=== PATIENT | female | born 1970 | race Caucasian/White ===

== ENCOUNTER 2018-01-30 14:02 | Outpatient (CLI) | payer BC | END 2018-01-30 14:03 | disposition home or self-care (01) | LOC: BICMAMMO 14:02 | PROVIDERS: ATTEND Obstetrics & Gynecology | DX: Z12.31 Encounter for screening mammogram for malignant neoplasm of breast (principal) | CPT/HCPCS: 77063; 77067 ==

== ENCOUNTER 2019-02-03 13:46 | Outpatient (CLI) | payer BC ==
--- NOTE | 2019-02-03 14:43 | MMO ---
Bilateral MAMMO Bilat Screen [facility]. CLINICAL HISTORY: Patient is 48 years old and is seen for screening. The patient has no family history of breast cancer. The patient has no personal history of cancer. The patient has a history of bilateral Implants in 2004. VIEWS: The views performed were: bilateral craniocaudal; bilateral craniocaudal with tomosynthesis; bilateral mediolateral oblique; bilateral mediolateral oblique with tomosynthesis; and bilateral Implant displaced with tomosynthesis. FILMS COMPARED: The present examination has been compared to prior imaging studies performed at [facility] on 05/28/2005, 09/28/2014, 09/30/2015 and 01/30/2018. This study has been interpreted with the assistance of computer-aided detection. MAMMOGRAM FINDINGS: There are scattered fibroglandular densities. There are no suspicious masses, suspicious calcifications, or new areas of architectural distortion. IMPRESSION: THERE IS NO MAMMOGRAPHIC EVIDENCE OF MALIGNANCY. A ROUTINE FOLLOW-UP MAMMOGRAM IN 1 YEAR IS RECOMMENDED. THE RESULTS OF THIS EXAM WERE SENT TO THE PATIENT. ACR BI-RADS Category 1 - Negative MAMMOGRAPHY NOTE: 1. A negative mammogram report should not delay a biopsy if a dominant of clinically suspicious mass is present. 2. Approximately 10% to 15% of breast cancers are not detected by mammography. 3. Adenosis and dense breasts may obscure an underlying neoplasm. Reported by: NAS SAUCEDO MD Electonically Signed: [id number]
== END 2019-02-03 13:47 | disposition home or self-care (01) ==
LOC: BICMAMMO 13:46
PROVIDERS: ATTEND Obstetrics & Gynecology
DX: Z12.31 Encounter for screening mammogram for malignant neoplasm of breast (principal); Z98.82 Breast implant status
CPT/HCPCS: 77063; 77067

== ENCOUNTER 2019-03-30 15:01 | Outpatient (CLI) | payer BC ==
--- NOTE | 2019-03-30 15:43 | BD ---
BONE DENSITOMETRY USING DEXA: Date: 03/30/19 HISTORY: Postmenopausal screening for osteoporosis. FINDINGS: Lumbar Spine: BMD (g/cm2) L1 0.837 T-Score: -1.4 Z-Score: -0.8 L2 0.913 T-Score: -1.0 Z-Score: -0.4 L3 0.928 T-Score: -1.4 Z-Score: 0.7 L4 0.891 T-Score: -1.5 Z-Score: -0.8 L1-L4 0.893 T-Score: -1.4 Z-Score: -0.7 Femoral Neck: 0.590 T-Score: -2.3 Z-Score: -1.6 Total Femur: 0.713 T-Score: -1.9 Z-Score: -1.4 The 10 year fracture risk for a major osteoporotic fracture is 5% and for a hip fracture is 0.9%. IMPRESSION: Osteopenia. POS: [facility]
== END 2019-03-30 15:02 | disposition home or self-care (01) ==
LOC: BICMAMMO 15:01
PROVIDERS: ATTEND Advanced Practice Midwife
DX: Z13.820 Encounter for screening for osteoporosis (principal); M85.859 Other specified disorders of bone density and structure, unspecified thigh
CPT/HCPCS: 77080